=== PATIENT | female | born 1950 | race Caucasian/White ===

== ENCOUNTER 2022-02-03 06:39 | Outpatient (REF) | payer OTHER, SELFPAY ==
[2022-02-03 06:45] LABS: MANUAL DIFF FLAG NO
[2022-02-03 06:58] LABS: Basophils Percent Auto 0.4 % (0-2); Eosinophils Percent Auto 0.2 % (0-4); Hematocrit 25.8 % (37.0-47.0); Hemoglobin 7.8 g/dl (12.0-16.0); Imm Gran Abs Auto 0.05 X10*3/uL (0.00-0.03); Imm Gran Pct Auto 0.5 % (0.0-0.4); Lymphocytes Absolute Auto 1.4 X10*3/uL (1.2-4.9); Lymphocytes Percent Auto 14.1 % (20-40); Mean Corpuscular HGB Conc 30.2 g/dl (31.0-35.0); Mean Corpuscular Hemoglobin 25.4 pg (27.0-33.0); Mean Platelet Volume 11.4 fL (9.4-12.3); Monocytes Absolute Auto 0.5 X10*3/uL (0.1-1.2); Monocytes Percent Auto 5.6 % (2-11); Neutrophils Absolute Auto 7.7 x10*3/uL (2.0-8.3); Neutrophils Percent Auto 79.2 % (45-73); Platelet Count 157 X10*3/uL (160-400); Red Blood Count 3.07 X10*6/uL (4.20-5.50); Red Cell Distribution Width 13.9 % (11.0-16.0); White Blood Count 9.7 X10*3/uL (4.8-10.8)
[2022-02-03 07:18] LABS: Alanine Aminotransferase 15 U/L (0-31); Albumin Level 3.2 g/dL (3.5-5.0); Alkaline Phosphatase 77 U/L (39-117); Anion Gap 14 (12-20); Aspartate Amino Transferase 13 U/L (5-31); Bilirubin Total 0.4 mg/dL (0.0-1.0); Blood Urea Nitrogen 35 mg/dL (9-16); Calcium 9.4 mg/dL (8.4-10.2); Carbon Dioxide 24 mmol/L (22-29); Chloride 101 mmol/L (96-108); Estimated Glomerular Filt Rate 39; Glucose Random 345 mg/dL (60-115); Potassium 4.6 mmol/L (3.3-5.1); Sodium 134 mmol/L (135-145); Total Protein 5.8 g/dL (6.5-8.0)
== END 2022-02-03 06:40 | disposition home or self-care (01) ==
LOC: HO.MMNH1L 06:39
PROVIDERS: Visit Provider Family Medicine
DX: E11.9 Type 2 diabetes mellitus without complications (principal)
CPT/HCPCS: 36415; 80053; 85025

== ENCOUNTER 2022-02-08 00:42 | Outpatient (REF) | payer OTHER, SELFPAY ==
[2022-02-08 06:42] LABS: MANUAL DIFF FLAG NO
[2022-02-08 07:06] LABS: Basophils Percent Auto 0.3 % (0-2); Eosinophils Absolute Auto 0.1 X10*3/uL (0.0-0.4); Eosinophils Percent Auto 1.6 % (0-4); Hematocrit 26.2 % (37.0-47.0); Hemoglobin 7.7 g/dl (12.0-16.0); Imm Gran Abs Auto 0.02 X10*3/uL (0.00-0.03); Imm Gran Pct Auto 0.3 % (0.0-0.4); Lymphocytes Percent Auto 16.3 % (20-40); Mean Corpuscular HGB Conc 29.4 g/dl (31.0-35.0); Mean Corpuscular Hemoglobin 25.2 pg (27.0-33.0); Mean Corpuscular Volume 85.6 fL (80.0-98.0); Mean Platelet Volume 12.1 fL (9.4-12.3); Monocytes Absolute Auto 0.5 X10*3/uL (0.1-1.2); Monocytes Percent Auto 7.4 % (2-11); Neutrophils Absolute Auto 4.6 x10*3/uL (2.0-8.3); Neutrophils Percent Auto 74.1 % (45-73); Platelet Count 147 X10*3/uL (160-400); Red Blood Count 3.06 X10*6/uL (4.20-5.50); Red Cell Distribution Width 13.8 % (11.0-16.0); White Blood Count 6.2 X10*3/uL (4.8-10.8)
[2022-02-08 07:30] LABS: Anion Gap 12 (12-20); Blood Urea Nitrogen 32 mg/dL (9-16); Carbon Dioxide 30 mmol/L (22-29); Chloride 104 mmol/L (96-108); Estimated Glomerular Filt Rate 54; Glucose Random 211 mg/dL (60-115); Potassium 4.9 mmol/L (3.3-5.1); Sodium 141 mmol/L (135-145)
== END 2022-02-08 00:43 | disposition home or self-care (01) ==
LOC: HO.MMNH1L 00:42
PROVIDERS: Visit Provider Family Medicine
DX: E11.9 Type 2 diabetes mellitus without complications (principal)
CPT/HCPCS: 36415; 80048; 85025

== ENCOUNTER 2022-02-15 | Outpatient (REF) | payer OTHER, SELFPAY ==
[2022-02-15 07:22] LABS: Anion Gap 12 (12-20); Blood Urea Nitrogen 33 mg/dL (9-16); Calcium 8.5 mg/dL (8.4-10.2); Carbon Dioxide 34 mmol/L (22-29); Chloride 100 mmol/L (96-108); Estimated Glomerular Filt Rate 40; Glucose Random 257 mg/dL (60-115); Potassium 4.2 mmol/L (3.3-5.1); Sodium 142 mmol/L (135-145)
[2022-02-15 07:57] LABS: Hematocrit 26.2 % (37.0-47.0); Hemoglobin 7.7 g/dl (12.0-16.0); Mean Corpuscular HGB Conc 29.4 g/dl (31.0-35.0); Mean Corpuscular Hemoglobin 25.2 pg (27.0-33.0); Mean Corpuscular Volume 85.6 fL (80.0-98.0); Mean Platelet Volume 12.8 fL (9.4-12.3); Platelet Count 114 X10*3/uL (160-400); Red Blood Count 3.06 X10*6/uL (4.20-5.50); Red Cell Distribution Width 14.6 % (11.0-16.0); White Blood Count 6.4 X10*3/uL (4.8-10.8)
== END 2022-02-15 00:01 ==
LOC: HO.MMNH1L
PROVIDERS: Visit Provider Family Medicine
DX: E11.9 Type 2 diabetes mellitus without complications (principal)
CPT/HCPCS: 36415; 80048; 85027

== ENCOUNTER 2022-02-17 | Outpatient (REF) | payer OTHER, SELFPAY ==
[2022-02-17 05:57] LABS: Anion Gap 14 (12-20); Blood Urea Nitrogen 37 mg/dL (9-16); Carbon Dioxide 34 mmol/L (22-29); Chloride 97 mmol/L (96-108); Estimated Glomerular Filt Rate 41; Glucose Random 162 mg/dL (60-115); Potassium 4.1 mmol/L (3.3-5.1); Sodium 141 mmol/L (135-145)
== END 2022-02-17 00:01 | disposition home or self-care (01) ==
LOC: HO.MMNH1L
PROVIDERS: Visit Provider Family Medicine
DX: I50.40 Unspecified combined systolic (congestive) and diastolic (congestive) heart failure (principal); J44.9 Chronic obstructive pulmonary disease, unspecified
CPT/HCPCS: 36415; 80048

== ENCOUNTER 2022-02-22 | Outpatient (REF) | payer MEDICARE, SELFPAY ==
[2022-02-22 06:59] LABS: Hematocrit 28.1 % (37.0-47.0); Hemoglobin 8.3 g/dl (12.0-16.0); Mean Corpuscular HGB Conc 29.5 g/dl (31.0-35.0); Mean Corpuscular Hemoglobin 24.5 pg (27.0-33.0); Mean Corpuscular Volume 82.9 fL (80.0-98.0); Mean Platelet Volume 13.3 fL (9.4-12.3); Platelet Count 118 X10*3/uL (160-400); Red Blood Count 3.39 X10*6/uL (4.20-5.50); Red Cell Distribution Width 14.6 % (11.0-16.0)
[2022-02-22 07:27] LABS: Anion Gap 14 (12-20); Blood Urea Nitrogen 52 mg/dL (9-16); Calcium 8.5 mg/dL (8.4-10.2); Carbon Dioxide 36 mmol/L (22-29); Chloride 98 mmol/L (96-108); Estimated Glomerular Filt Rate 32; Glucose Random 151 mg/dL (60-115); Potassium 3.8 mmol/L (3.3-5.1); Sodium 144 mmol/L (135-145)
== END 2022-02-22 00:01 | disposition home or self-care (01) ==
LOC: HO.MMNH1L
PROVIDERS: Visit Provider Family Medicine
DX: E11.9 Type 2 diabetes mellitus without complications (principal)
CPT/HCPCS: 36415; 80048; 85027

== ENCOUNTER 2022-02-22 | Outpatient (REF) | payer MEDICARE, SELFPAY ==
[2022-02-25 05:52] LABS: Anion Gap 14 (12-20); Blood Urea Nitrogen 40 mg/dL (9-16); Calcium 9.1 mg/dL (8.4-10.2); Carbon Dioxide 35 mmol/L (22-29); Chloride 97 mmol/L (96-108); Estimated Glomerular Filt Rate 35; Glucose Random 286 mg/dL (60-115); Potassium 4.3 mmol/L (3.3-5.1); Sodium 142 mmol/L (135-145)
== END 2022-02-22 00:01 | disposition home or self-care (01) ==
LOC: HO.MMNH1L
PROVIDERS: Visit Provider Family Medicine
DX: I50.40 Unspecified combined systolic (congestive) and diastolic (congestive) heart failure (principal); J44.9 Chronic obstructive pulmonary disease, unspecified
CPT/HCPCS: 36415; 80048

== ENCOUNTER 2022-02-24 17:48 | Outpatient (REF) | payer OTHER, SELFPAY ==
[2022-02-24 18:18] LABS: Appearance Urine HAZY; Color Urine YELLOW; Glucose Urine UA NEG (NEG); Leukocyte Esterase Urine 3+ (NEG); Nitrite Urine POS (NEG); Specific Gravity - Urine 1.015 (1.005-1.025); Urine Blood TRACE (NEG); Urine Ketones NEG (NEG); Urine Protein NEG (NEG-TRACE)
[2022-02-24 18:36] LABS: Bacteria Urine 3+ /LPF; Squamous Epithelial Cell Urine 2+ /LPF
== END 2022-02-24 17:49 | disposition home or self-care (01) ==
LOC: HO.MMNH1L 17:48
PROVIDERS: Visit Provider Family Medicine
DX: J44.9 Chronic obstructive pulmonary disease, unspecified (principal); M62.511 Muscle wasting and atrophy, not elsewhere classified, right shoulder
CPT/HCPCS: 81001; 87086

== ENCOUNTER → 2022-08-06 14:29 | Outpatient (BNVA) | payer MEDICARE, MEDICAID, SELFPAY | PROVIDERS: PCP Internal Medicine; Visit Provider Student in an Organized Health Care Education/Training Program | DX: M06.9 Rheumatoid arthritis, unspecified (principal); D86.9 Sarcoidosis, unspecified; M17.0 Bilateral primary osteoarthritis of knee; G51.0 Bell's palsy | CPT/HCPCS: 99202 ==

== ENCOUNTER → 2022-12-16 11:16 | Outpatient (BNVA) | payer OTHER, SELFPAY | PROVIDERS: PCP Internal Medicine; Visit Provider Student in an Organized Health Care Education/Training Program | DX: M06.09 Rheumatoid arthritis without rheumatoid factor, multiple sites (principal); M87.151 Osteonecrosis due to drugs, right femur; T38.0X5A Adverse effect of glucocorticoids and synthetic analogues, initial encounter; S63.8X1A Sprain of other part of right wrist and hand, initial encounter | CPT/HCPCS: 99212 ==

== ENCOUNTER → 2023-03-11 10:22 | Outpatient (BNVA) | payer MEDICARE, MEDICAID, SELFPAY | PROVIDERS: PCP Internal Medicine; Visit Provider Student in an Organized Health Care Education/Training Program | DX: M06.09 Rheumatoid arthritis without rheumatoid factor, multiple sites (principal); M87.151 Osteonecrosis due to drugs, right femur; T38.0X5D Adverse effect of glucocorticoids and synthetic analogues, subsequent encounter; S63.8X1D Sprain of other part of right wrist and hand, subsequent encounter | CPT/HCPCS: 99212 ==

== ENCOUNTER 2023-06-10 13:36 | Outpatient (AMB) | payer MEDICARE, MEDICAID, SELFPAY ==
--- NOTE | 2023-06-10 13:38 | MHC.OFFVIS ---
Intake Vital Signs 06/10/23 13:39 Height 5 ft 3.5 in BMI Reason not done Patient refused/unable Comment Pt arrived in stretcher Intake Visit Reasons: RA Intake Note: Pt seen today for RA follow up. She is currently on nitrofurantoin 100mg daily. Arrived by ambulance with her son who states she is very sick and nauseous due to gastroparesis. Unable to take vital signs as pt is vomiting. 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 Required: No Accompanied by: Son Allergies adhesive Adverse Reaction (Intermediate, Verified 06/10/23 13:39) Rash, Swelling cefadroxil Adverse Reaction (Unknown, Verified 06/10/23 13:39) Unknown NSAIDS (Non-Steroidal Anti-Inflamma Adverse Reaction (Unknown, Verified 06/10/23 13:39) Unknown pantoprazole Adverse Reaction (Unknown, Verified 06/10/23 13:39) Unknown From Duricef Allergy (Intermediate, Uncoded 06/10/23 13:39) RASH Medication List - Last Reconciled 06/10/23 by Jakub Greenwood MD albuterol sulfate 90 mcg/actuation 0 mcg inhalation apixaban (Eliquis) 5 mg PO BID bisacodyl 10 mg [place] DAILY PRN blood sugar diagnostic (FreeStyle Lite Strips) As directed budesonide-formoterol 160-4.5 mcg/actuation (Symbicort) 2 puffs inhalation bumetanide 1 mg PO DAILY buspirone 5 mg PO BID calcitriol mcg PO cholecalciferol (vitamin D3) 1,250 mcg PO QWEEK cholecalciferol (vitamin D3) 25 mcg PO DAILY famotidine 20 mg PO BID ferrous sulfate 325 mg PO DAILY folic acid 1 mg PO DAILY insulin regular hum U-500 conc (Humulin R U-500 (Concentrated) Insulin) units subcut isosorbide mononitrate ER 60 mg PO DAILY lactulose mL PO lancets (TRUEplus Lancets) As directed levothyroxine 112 mcg PO DAILY metoprolol succinate ER 50 mg PO DAILY morphine ER 30 mg PO BID PRN nitrofurantoin macrocrystal 100 mg PO BEDTIME ondansetron 4 mg PO DAILY oxycodone 10 mg PO QID PRN peg 400-propylene glycol 0.4-0.3 % (Lubricant Eye (PG-PEG 400)) 2 drps ophthalmic (eye) Q4H PRN potassium chloride ER 20 mEq PO DAILY pregabalin (Lyrica) 75 mg PO BID ropinirole 2 mg PO BEDTIME sennosides (senna) 8.6 - 17.2 mg PO BEDTIME PRN spironolactone 25 mg PO DAILY sulfasalazine 1 g (2 x 500 mg) PO BID HPI HPI Comments History of Present Illness Details 72-year-old female with PMR/seronegative RA/sarcoidosis returns for follow-up. She is accompanied by her son. Patient has been having symptoms of nausea and vomiting for the last year. She was diagnosed with gastroparesis about 4 weeks ago by Gastroenterology and Zofran was prescribed. Today patient was nauseous in clinic and vomited a small amount of yellowish material. Vital signs could not be completed. Patient continues to have significant pain in her shoulders and hips. States that when they are trying to insert a Morales catheter she has significant difficulty moving her hips. Compliant with sulfasalazine 2 tablets twice daily. Follow-up 01/06: 71-year-old female with a past medical history of sarcoidosis, seronegative RA, PMR, COPD presents for follow-up. Patient is now discharged home and her son is taking care of her. Patient continues to have diffuse pain especially in her shoulders worse on the left, wrists, fingers, knees and hips. She states that the joint pain lasts almost all day. She mentions that a few days ago she had abrupt onset of right wrist swelling. She went to urgent care and did an x-ray which showed evidence of a scapular Andrea ligamentous injury. Patient treated it with Voltaren gel with some improvement. Initial history: This is a 71-year-old female who was transferred from long-term [facility]. She has a relatively complex rheumatologic history. Unfortunately I do not have any records of her previous rheumatological evaluation. All history obtained is from patient. She was diagnosed with uveitis in her 20s which was treated with prednisone. 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 She also has a diagnosis of rheumatoid arthritis diagnosed about 5 years ago which was treated with methotrexate and Humira. The Humira was discontinued due to infectious complications. she was also diagnosed with PMR about 2 years ago and was on prednisone for about a year. also there was suspicion of a myopathic disorder and she had a right thigh biopsy. she developed left Terrazas's palsy about 2 months ago and this was not treated, she has some improvement of hers left facial weakness but did not get evaluated by neurology. She used to see Dr. Marroquin, she was last seen by him about a year ago and previously saw Dr. Davis . Presently she has diffuse pain including her shoulders, elbows, hands, ankles and feet. she denies any significant joint swelling. Presently she is on prednisone 1 mg daily. She has been having anemia and she is scheduled for a colonoscopy soon. She also mentions that 1 of her sons has sarcoidosis. She states that she will likely be discharged from long-term care to her son's house in about a month. [facility] Medical History (Updated 06/10/23 @ 14:32 by Jakub Greenwood MD) Anxiety Cardiac pacemaker Crohn's disease Dupuytren contracture Dyslipidemia Dysphagia Encounter for vitamin deficiency screening Hypertension Hypothyroidism Major depressive disorder Morbid obesity Obstructive sleep apnea PMR (polymyalgia rheumatica) Rheumatoid arthritis Sarcoidosis Type 2 diabetes mellitus Surgical History H/O hand surgery History of partial colectomy History of thyroid surgery Hx of section Family History Other Rheumatoid arthritis Social History Alcohol intake: current Alcohol intake frequency: does not drink Patient Tobacco Use Status: Former Tobacco user Quit Date: 40 years ago Review of Systems GI Reports dyspepsia, Reports nausea and Reports vomiting Musc Reports arthralgias and Reports stiffness Physical Exam Const General: cooperative and comfortable Nutritional Appearance: obese morbidly obese Orientation/consciousness: patient oriented x3 Limitations: other limitations ( Patient is here on a stretcher) Resp Effort & Inspection: normal respiratory effort and able to speak in complete sentences Neuro General: patient oriented x3 Extrem Other: significantly limited range of motion of her shoulders. Some tenderness to palpation. No erythema or warmth Wrists are not tender but painful with flexion and extension Significantly limited wrist extension bilaterally Left hand 2nd through 5th MCP tenderness in the palmar aspect Osteoarthritic changes of both hands. Normal nail fold capillaroscopy Right knee warmth Results Reviewed Results Reviewed: Right thigh muscle biopsy 10/2021? Impression:? Abnormal skeletal muscle with moderate to marked type 2 fiber atrophy Type 2 fiber atrophy is a relatively nonspecific changes, most often associated with this use of muscle or corticosteroid therapy.? The muscle shows no histologic features consistent with a primary myopathy or neurogenic process.? No inflammation is present.? The negative immune no reactivity for [facility] would not favor an inflammatory myopathy Right hand x-ray 12/10/2022 Impression severe arthritic changes. Evidence of scapholunate ligamentous injury. Assessment & Plan Assessment & Plan (1) Rheumatoid arthritis: Code(s): M06.9 - Rheumatoid arthritis, unspecified Qualifiers: Rheumatoid arthritis location: multiple sites Rheumatoid factor presence: without rheumatoid factor Qualified Code(s): M06.09 - Rheumatoid arthritis without rheumatoid factor, multiple sites Plan: ?This is a 72-year-old female with complex past medical history. She has a pretty significant past rheumatologic history.? Unfortunately I only have partial records records of her prior rheumatologic evaluation.? She developed uveitis in her 20s which was treated with prednisone, she was diagnosed with pulmonary sarcoidosis after a lung biopsy , she did not seem to have any? manifestations of pulmonary sarcoidosis that required treatment.? But she did develop cardiac sarcoidosis and required pacemaker around 2010.? She also developed polymyalgia rheumatica around 2019 ago & was on long-term steroids.? She also was diagnosed with rheumatoid arthritis and was treated with methotrexate and Humira.? The Humira was discontinued due to infectious complications.?? Unfortunately she also developed left-sided Terrazas's palsy in fall of 2021 which was treated with prednisone. earlier this year patient was started on methotrexate, she was then admitted to the hospital with a UTI and labs showed thrombocytopenia. Methotrexate was discontinued at that time. Sulfasalazine was started a few months ago with some relief. Within the last 2 months patient also developed another UTI. Patient however continues to have generalized pain and stiffness. The majority of her symptoms are in her shoulders and hips. Of note patient has bilateral femoral AVN's. Unfortunately we are quite limited in our choice for DMARD, most biologics would be relatively contraindicated due to risk of infection. Methotrexate would also be relatively contraindicated due to risk of pneumonitis on top of her history of COPD/asthma with multiple exacerbations. Discussed risks and benefits of long-term prednisone therapy. Patient agreed to proceed. Start prednisone 5 mg daily. Advised patient and her send that if her blood sugars become uncontrolled then will stop the prednisone and consider other options. (2) Avascular necrosis of right femur due to adverse effect of steroid therapy: Code(s): M87.151 - Osteonecrosis due to drugs, right femur; T38.0X5A - Adverse effect of glucocorticoids and synthetic analogues, initial encounter Plan: Bilateral hip x-ray is suspicious for bilateral femoral AVN. We cannot order an MRI to confirm AVN as her pacemaker is not MRI compatible. Patient however would not be a surgical candidate at this point for hip replacement. She is also not interested in getting evaluated by an orthopedic surgeon (3) Screening for osteoporosis: Code(s): Z13.820 - Encounter for screening for osteoporosis Plan: Patient's most recent bone density scan was many years ago. He was told she had osteopenia. Will check a new bone density scan Plan I spent 26 minutes reviewing patient's chart, evaluating patient, ordering diagnostic workup, counseling patient and documenting in the chart Orders: Orders Vitamin D 25-OH Total 3 Months Z13.21 - Encounter for screening for nutritional disorder Medications: New prednisone 5 mg PO DAILY 30 tabs 2RF Coding Level of Care Code Est Pt Level 4 (80427) Diagnoses Rheumatoid arthritis M06.09 Rheumatoid arthritis location: multiple sites Rheumatoid factor presence: without rheumatoid factor Avascular necrosis of right femur due to adverse effect of steroid therapy M87.151; T38.0X5A Screening for osteoporosis Z13.820
== END 2023-06-10 14:22 | disposition home or self-care (01) ==
PROVIDERS: PCP Internal Medicine; Visit Provider Student in an Organized Health Care Education/Training Program
DX: M06.09 Rheumatoid arthritis without rheumatoid factor, multiple sites (principal); M87.151 Osteonecrosis due to drugs, right femur; T38.0X5A Adverse effect of glucocorticoids and synthetic analogues, initial encounter; Z13.820 Encounter for screening for osteoporosis
CPT/HCPCS: 99214

== ENCOUNTER → 2023-06-10 13:36 | Outpatient (BNVA) | payer MEDICARE, MEDICAID, SELFPAY | PROVIDERS: PCP Internal Medicine; Visit Provider Student in an Organized Health Care Education/Training Program | DX: M06.09 Rheumatoid arthritis without rheumatoid factor, multiple sites (principal); M72.0 Palmar fascial fibromatosis [Dupuytren]; M35.3 Polymyalgia rheumatica; M87.151 Osteonecrosis due to drugs, right femur; T38.0X5A Adverse effect of glucocorticoids and synthetic analogues, initial encounter; Y92.9 Unspecified place or not applicable; Z13.21 Encounter for screening for nutritional disorder; Z13.820 Encounter for screening for osteoporosis | CPT/HCPCS: 99212 ==

== ENCOUNTER 2023-08-31 13:56 | Outpatient (AMB) | payer OTHER, SELFPAY ==
--- NOTE | 2023-08-31 13:59 | MHC.OFFVIS ---
Intake Vital Signs 08/31/23 14:00 Height 5 ft 3.5 in BMI Reason not done Patient refused/unable BP 102/80 Blood Pressure Location Lt radial Position Supine Pulse 70 Pulse Source Pulse Oximeter Temp 98 F Temp Source Skin Pulse Oximetry (%) 92 Oxygen Delivery Method Room Air Intake Visit Reasons: RA Intake Note: Patient presents today to follow up on RA. c/o left sided back excessive sweating. c/o wheezing x 1 wk, nebulizer tx helping Transportation Associate Required: No Accompanied by: Son Allergies adhesive Adverse Reaction (Intermediate, Verified 08/31/23 14:00) Rash, Swelling cefadroxil Adverse Reaction (Unknown, Verified 08/31/23 14:00) Unknown NSAIDS (Non-Steroidal Anti-Inflamma Adverse Reaction (Unknown, Verified 08/31/23 14:00) Unknown pantoprazole Adverse Reaction (Unknown, Verified 08/31/23 14:00) Unknown From Duricef Allergy (Intermediate, Uncoded 08/31/23 14:00) RASH Medication List - Last Reconciled 08/31/23 by Jakub Greenwood MD albuterol sulfate 90 mcg/actuation 0 mcg inhalation apixaban (Eliquis) 5 mg PO BID Bacillus coagulans-inulin 1 billion-250 cell-mg (Probiotic Formula (inulin)) 1 cap PO BID bisacodyl 10 mg LA DAILY PRN blood sugar diagnostic (FreeStyle Lite Strips) As directed budesonide-formoterol 160-4.5 mcg/actuation (Symbicort) 2 puffs inhalation bumetanide 1 mg PO DAILY buspirone 5 mg PO BID calcitriol mcg PO cholecalciferol (vitamin D3) 25 mcg PO DAILY ciprofloxacin HCl 500 mg PO BID famotidine 20 mg PO BID ferrous sulfate 325 mg PO DAILY folic acid 1 mg PO DAILY insulin regular hum U-500 conc (Humulin R U-500 (Concentrated) Insulin) units subcut isosorbide mononitrate ER 60 mg PO DAILY lactulose mL PO lancets (TRUEplus Lancets) As directed levothyroxine 112 mcg PO DAILY metoprolol succinate ER 50 mg PO DAILY morphine ER 30 mg PO BID PRN ondansetron 4 mg PO DAILY oxycodone 10 mg PO QID PRN potassium chloride ER 20 mEq PO DAILY prednisone 5 mg PO DAILY pregabalin (Lyrica) 75 mg PO BID ropinirole 2 mg PO BEDTIME sennosides (senna) 8.6 - 17.2 mg PO BEDTIME PRN spironolactone 25 mg PO DAILY sulfasalazine 1,000 mg (2 x 500 mg) PO BID tiotropium bromide 2.5 mcg/actuation (Spiriva Respimat) 2 puffs inhalation DAILY HPI HPI Comments History of Present Illness Details 72-year-old female with PMR/seronegative RA/sarcoidosis returns for follow-up. She is accompanied by her son. She is on sulfasalazine 1000 mg Twice daily and prednisone 5 mg daily. Her joint pain and swelling is better overall. She continues to have difficulty with moving her shoulders. She was diagnosed with a UTI it recently when she was having fevers and confusion, alteration of sleep cycle. She was started on ciprofloxacin with improvement. Recently patient has been more short of breath. She has been using nebulizer treatment with little relief. She is having more desaturations at home. She had a cough productive of sputum mixed with blood recently. Per son she has been having leakage of fluid from her skin on her side. Follow-up 01/06: 71-year-old female with a past medical history of sarcoidosis, seronegative RA, PMR, COPD presents for follow-up. Patient is now discharged home and her son is taking care of her. Patient continues to have diffuse pain especially in her shoulders worse on the left, wrists, fingers, knees and hips. She states that the joint pain lasts almost all day. She mentions that a few days ago she had abrupt onset of right wrist swelling. She went to urgent care and did an x-ray which showed evidence of a scapular Andrea ligamentous injury. Patient treated it with Voltaren gel with some improvement. Initial history: This is a 71-year-old female who was transferred from long-term [facility]. She has a relatively complex rheumatologic history. Unfortunately I do not have any records of her previous rheumatological evaluation. All history obtained is from patient. She was diagnosed with uveitis in her 20s which was treated with prednisone. 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 She also has a diagnosis of rheumatoid arthritis diagnosed about 5 years ago which was treated with methotrexate and Humira. The Humira was discontinued due to infectious complications. she was also diagnosed with PMR about 2 years ago and was on prednisone for about a year. also there was suspicion of a myopathic disorder and she had a right thigh biopsy. she developed left Terrazas's palsy about 2 months ago and this was not treated, she has some improvement of hers left facial weakness but did not get evaluated by neurology. She used to see Dr. Marroquin, she was last seen by him about a year ago and previously saw Dr. Davis . Presently she has diffuse pain including her shoulders, elbows, hands, ankles and feet. she denies any significant joint swelling. Presently she is on prednisone 1 mg daily. She has been having anemia and she is scheduled for a colonoscopy soon. She also mentions that 1 of her sons has sarcoidosis. She states that she will likely be discharged from long-term care to her son's house in about a month. [facility] Medical History Encounter for vitamin deficiency screening Sarcoidosis Cardiac pacemaker PMR (polymyalgia rheumatica) Hypertension Obstructive sleep apnea Anxiety Dyslipidemia Hypothyroidism Dupuytren contracture Crohn's disease Morbid obesity Type 2 diabetes mellitus Rheumatoid arthritis Dysphagia Major depressive disorder Surgical History History of thyroid surgery H/O hand surgery Hx of section History of partial colectomy Family History Other Rheumatoid arthritis Social History Alcohol intake: current Alcohol intake frequency: does not drink Patient Tobacco Use Status: Former Tobacco user Quit Date: 40 years ago Review of Systems Card Reports dyspnea Resp Reports dyspnea and Reports wheezing Musc Reports arthralgias Aller/Immun Reports wheezing Physical Exam Vital Signs: Last Vital Signs Temp 98 F 08/31/23 14:00 Pulse 70 08/31/23 14:00 BP 102/80 08/31/23 14:00 Pulse Ox 92 08/31/23 14:00 Oxygen Delivery Method Room Air 08/31/23 14:00 Const General: cooperative and comfortable Nutritional Appearance: obese morbidly obese Orientation/consciousness: patient oriented x3 Limitations: other limitations ( Patient is here on a stretcher) Resp Other: Some respiratory distress Effort & Inspection: able to speak in complete sentences Auscultation: wheezes Skin Other: Patient has multiple skin mole eyes that are stretched with clear fluid, some of the stretch menjivar ruptured with some clear fluid leakage Neuro General: patient oriented x3 Extrem Other: significantly limited range of motion of her shoulders. Some tenderness to palpation. No erythema or warmth Wrists are not tender but painful with flexion and extension Significantly limited wrist extension bilaterally No MCP tenderness or swelling bilaterally today Osteoarthritic changes of both hands. Normal nail fold capillaroscopy No knee pain, warmth, swelling bilaterally Pitting edema of lower extremities Results Reviewed Results Reviewed: Right thigh muscle biopsy 10/2021? Impression:? Abnormal skeletal muscle with moderate to marked type 2 fiber atrophy Type 2 fiber atrophy is a relatively nonspecific changes, most often associated with this use of muscle or corticosteroid therapy.? The muscle shows no histologic features consistent with a primary myopathy or neurogenic process.? No inflammation is present.? The negative immune no reactivity for [facility] would not favor an inflammatory myopathy Right hand x-ray 12/10/2022 Impression severe arthritic changes. Evidence of scapholunate ligamentous injury. Assessment & Plan Assessment & Plan (1) Rheumatoid arthritis: Code(s): M06.9 - Rheumatoid arthritis, unspecified Qualifiers: Rheumatoid arthritis location: multiple sites Rheumatoid factor presence: without rheumatoid factor Qualified Code(s): M06.09 - Rheumatoid arthritis without rheumatoid factor, multiple sites Plan: ?This is a 72-year-old female with complex past medical history. She has a pretty significant past rheumatologic history.? Unfortunately I only have partial records records of her prior rheumatologic evaluation.? She developed uveitis in her 20s which was treated with prednisone, she was diagnosed with pulmonary sarcoidosis after a lung biopsy , she did not seem to have any? manifestations of pulmonary sarcoidosis that required treatment.? But she did develop cardiac sarcoidosis and required pacemaker around 2010.? She also developed polymyalgia rheumatica around 2019 ago & was on long-term steroids.? She also was diagnosed with rheumatoid arthritis and was treated with methotrexate and Humira.? The Humira was discontinued due to infectious complications.?? Unfortunately she also developed left-sided Terrazas's palsy in fall of 2021 which was treated with prednisone. earlier this year patient was started on methotrexate, she was then admitted to the hospital with a UTI and labs showed thrombocytopenia. Methotrexate was discontinued at that time. Sulfasalazine was started a few months ago with some relief. Within the last 2 months patient also developed another UTI. Patient however continues to have generalized pain and stiffness. The majority of her symptoms are in her shoulders and hips. Of note patient has bilateral femoral AVN's. Unfortunately we are quite limited in our choice for DMARD, most biologics would be relatively contraindicated due to risk of infection. Methotrexate would also be relatively contraindicated due to risk of pneumonitis on top of her history of COPD/asthma with multiple exacerbations. Last visit prednisone 5 mg daily was added to her sulfasalazine 1000 mg Twice daily with significant improvement. I do not see any swollen joints today. Patient however has developed CHF, it is unclear what the culprit is, can be recent UTI versus prednisone which can lead to fluid overload. Reduce prednisone to 2.5 mg daily Continue sulfasalazine 1000 mg Twice daily Labs before next visit in 3 months (2) Avascular necrosis of right femur due to adverse effect of steroid therapy: Code(s): M87.151 - Osteonecrosis due to drugs, right femur; T38.0X5A - Adverse effect of glucocorticoids and synthetic analogues, initial encounter Plan: Bilateral hip x-ray is suspicious for bilateral femoral AVN. We cannot order an MRI to confirm AVN as her pacemaker is not MRI compatible. Patient however would not be a surgical candidate at this point for hip replacement. She is also not interested in getting evaluated by an orthopedic surgeon (3) Screening for osteoporosis: Code(s): Z13.820 - Encounter for screening for osteoporosis Plan: Patient's most recent bone density scan was many years ago. She was told she had osteopenia. New bone density scan was ordered last visit, was not performed yet (4) CHF (congestive heart failure): Code(s): I50.9 - Heart failure, unspecified Qualifiers: Heart failure type: combined systolic and diastolic Heart failure chronicity: acute on chronic Qualified Code(s): I50.43 - Acute on chronic combined systolic (congestive) and diastolic (congestive) heart failure Plan: Patient is significantly fluid overloaded on exam, she even has skin edema with fluid leakage. Unclear culprit, can be recent UTI verses prednisone versus other causes. Reduce prednisone to 2.5 mg daily. Given shortness of breath on exam and significant fluid overload. Patient was taken to the emergency room at [facility] I spent 45 minutes reviewing patient's chart, evaluating patient, ordering diagnostic workup, counseling patient, speaking to EMS personnel and documenting in the chart Orders: Orders Complete Blood Count Auto Diff 3 Months M06.9 - Rheumatoid arthritis, unspecified Comprehensive Met. Panel 3 Months M06.9 - Rheumatoid arthritis, unspecified Erythrocyte Sedimentation Rate 3 Months M06.9 - Rheumatoid arthritis, unspecified C Reactive Protein 3 Months M06.9 - Rheumatoid arthritis, unspecified Coding Level of Care Code Est Pt Level 5 (91106) Diagnoses Rheumatoid arthritis of multiple sites with negative rheumatoid factor M06.09 Rheumatoid arthritis location: multiple sites Rheumatoid factor presence: without rheumatoid factor Avascular necrosis of right femur due to adverse effect of steroid therapy M87.151; T38.0X5A Screening for osteoporosis Z13.820 Acute on chronic combined systolic and diastolic congestive heart failure I50.43 Heart failure type: combined systolic and diastolic Heart failure chronicity: acute on chronic
[2023-08-31 14:00] VITALS: BP 102/80; PULSE 70; TEMP 36.6; O2SAT 92
== END 2023-08-31 14:49 | disposition home or self-care (01) ==
PROVIDERS: PCP Internal Medicine; Visit Provider Student in an Organized Health Care Education/Training Program
DX: M06.09 Rheumatoid arthritis without rheumatoid factor, multiple sites (principal); M87.151 Osteonecrosis due to drugs, right femur; T38.0X5A Adverse effect of glucocorticoids and synthetic analogues, initial encounter; Z13.820 Encounter for screening for osteoporosis; I50.43 Acute on chronic combined systolic (congestive) and diastolic (congestive) heart failure
CPT/HCPCS: 99215

== ENCOUNTER → 2023-08-31 13:56 | Outpatient (BNVA) | payer MEDICARE, MEDICAID, SELFPAY | PROVIDERS: PCP Internal Medicine; Visit Provider Student in an Organized Health Care Education/Training Program | DX: M06.09 Rheumatoid arthritis without rheumatoid factor, multiple sites (principal); M87.151 Osteonecrosis due to drugs, right femur; T38.0X5A Adverse effect of glucocorticoids and synthetic analogues, initial encounter; I50.43 Acute on chronic combined systolic (congestive) and diastolic (congestive) heart failure; Z13.820 Encounter for screening for osteoporosis | CPT/HCPCS: 99212 ==

== ENCOUNTER 2023-12-01 13:49 | Outpatient (AMB) | payer MEDICARE, MEDICAID, SELFPAY ==
[2023-12-01 13:54] VITALS: BP 118/62; PULSE 68; O2SAT 92
--- NOTE | 2023-12-01 13:54 | MHC.OFFVIS ---
Intake Vital Signs 12/01/23 13:54 Height 5 ft 3.5 in BP 118/62 Blood Pressure Location Lt brachial Position Sitting Pulse 68 Pulse Source Pulse Oximeter Pulse Oximetry (%) 92 Oxygen Delivery Method Room Air Intake Visit Reasons: RA Intake Note: Pt last seen 08/31/23 presents today for follow up and test results. c/o left shoulder pain Electrical Tech Required: No Allergies adhesive Adverse Reaction (Intermediate, Verified 12/01/23 13:58) Rash, Swelling cefadroxil Adverse Reaction (Unknown, Verified 12/01/23 13:58) Unknown NSAIDS (Non-Steroidal Anti-Inflamma Adverse Reaction (Unknown, Verified 12/01/23 13:58) Unknown pantoprazole Adverse Reaction (Unknown, Verified 12/01/23 13:58) Unknown From Duricef Allergy (Intermediate, Uncoded 12/01/23 13:58) RASH Medication List - Last Reconciled 12/01/23 by Jakub Greenwood MD albuterol sulfate 90 mcg/actuation 0 mcg inhalation apixaban (Eliquis) 5 mg PO BID Bacillus coagulans-inulin 1 billion-250 cell-mg (Probiotic Formula (inulin)) 1 cap PO BID bisacodyl 10 mg [place] DAILY PRN blood sugar diagnostic (FreeStyle Lite Strips) As directed budesonide-formoterol 160-4.5 mcg/actuation (Symbicort) 2 puffs inhalation bumetanide 1 mg PO DAILY buspirone 5 mg PO BID calcitriol mcg PO cholecalciferol (vitamin D3) 25 mcg PO DAILY famotidine 20 mg PO BID ferrous sulfate 325 mg PO DAILY folic acid 1 mg PO DAILY fosfomycin tromethamine PO insulin regular hum U-500 conc (Humulin R U-500 (Concentrated) Insulin) units subcut isosorbide mononitrate ER 60 mg PO DAILY lactulose mL PO lancets (TRUEplus Lancets) As directed levothyroxine 112 mcg PO DAILY metoprolol succinate ER 50 mg PO DAILY morphine ER 30 mg PO BID PRN ondansetron 4 mg PO DAILY oxycodone 10 mg PO QID PRN potassium chloride ER 20 mEq PO DAILY prednisone 2.5 mg PO DAILY pregabalin (Lyrica) 75 mg PO BID ropinirole 2 mg PO BEDTIME sennosides (senna) 8.6 - 17.2 mg PO BEDTIME PRN spironolactone 25 mg PO DAILY sulfamethoxazole-trimethoprim 800-160 mg 1 tab PO BID sulfasalazine 1,000 mg (2 x 500 mg) PO BID tiotropium bromide 2.5 mcg/actuation (Spiriva Respimat) 2 puffs inhalation DAILY warfarin 5 mg PO DAILY HPI HPI Comments History of Present Illness Details 72-year-old female with PMR/seronegative RA/sarcoidosis returns for follow-up. She is accompanied by her son. She is on the stretcher. She is on sulfasalazine 1000 mg Twice daily and prednisone 2.5 mg daily. After last visit I sent her to the emergency room. She was admitted to [facility]. She was found to have bilateral PE. CHF exacerbation as well as pneumonia. She was treated with diuretics, Eliquis was switched to warfarin. She also received a few days of antibiotics and discharged home. Today patient is complaining of left shoulder pain and bilateral hip pain. He states that her skin is no longer oozing fluid. She states that she is currently suffering from a UTI and having hematuria. She will be seeing a urologist soon. Follow-up 01/06: 71-year-old female with a past medical history of sarcoidosis, seronegative RA, PMR, COPD presents for follow-up. Patient is now discharged home and her son is taking care of her. Patient continues to have diffuse pain especially in her shoulders worse on the left, wrists, fingers, knees and hips. She states that the joint pain lasts almost all day. She mentions that a few days ago she had abrupt onset of right wrist swelling. She went to urgent care and did an x-ray which showed evidence of a scapular Andrea ligamentous injury. Patient treated it with Voltaren gel with some improvement. Initial history: This is a 71-year-old female who was transferred from long-term care. She has a relatively complex rheumatologic history. Unfortunately I do not have any records of her previous rheumatological evaluation. All history obtained is from patient. She was diagnosed with uveitis in her 20s which was treated with prednisone. 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 She also has a diagnosis of rheumatoid arthritis diagnosed about 5 years ago which was treated with methotrexate and Humira. The Humira was discontinued due to infectious complications. she was also diagnosed with PMR about 2 years ago and was on prednisone for about a year. also there was suspicion of a myopathic disorder and she had a right thigh biopsy. she developed left Terrazas's palsy about 2 months ago and this was not treated, she has some improvement of hers left facial weakness but did not get evaluated by neurology. She used to see Dr. Marroquin, she was last seen by him about a year ago and previously saw Dr. Davis . Presently she has diffuse pain including her shoulders, elbows, hands, ankles and feet. she denies any significant joint swelling. Presently she is on prednisone 1 mg daily. She has been having anemia and she is scheduled for a colonoscopy soon. She also mentions that 1 of her sons has sarcoidosis. She states that she will likely be discharged from long-term care to her son's house in about a month. [facility] Medical History Encounter for vitamin deficiency screening Sarcoidosis Cardiac pacemaker PMR (polymyalgia rheumatica) Hypertension Obstructive sleep apnea Anxiety Dyslipidemia Hypothyroidism Dupuytren contracture Crohn's disease Morbid obesity Type 2 diabetes mellitus Rheumatoid arthritis Dysphagia Major depressive disorder Surgical History History of thyroid surgery H/O hand surgery Hx of section History of partial colectomy Family History Other Rheumatoid arthritis Social History Alcohol intake: current Alcohol intake frequency: does not drink Patient Tobacco Use Status: Former Tobacco user Quit Date: 40 years ago Review of Systems Card Reports dyspnea Resp Reports dyspnea Musc Reports arthralgias Physical Exam Vital Signs: Last Vital Signs Pulse 68 12/01/23 13:54 BP 118/62 12/01/23 13:54 Pulse Ox 92 12/01/23 13:54 Oxygen Delivery Method Room Air 12/01/23 13:54 Const General: cooperative and comfortable Nutritional Appearance: obese morbidly obese Orientation/consciousness: patient oriented x3 Limitations: other limitations ( Patient is here on a stretcher) Resp Other: Gets a little out of breath with talking but able to finish her sentences Effort & Inspection: able to speak in complete sentences Auscultation: rhonchi and diminished lung sounds Cardio Rate: regular rate Rhythm: regular rhythm Skin Other: Few superficial bruises on elbows Neuro General: patient oriented x3 Extrem Other: significantly limited range of motion of her shoulders. Some tenderness to palpation. No erythema or warmth Wrists are not tender but painful with flexion and extension No MCP tenderness or swelling bilaterally today Osteoarthritic changes of both hands. Normal nail fold capillaroscopy No knee pain, warmth, swelling bilaterally Mild Pitting edema of lower extremities Results Reviewed Results Reviewed: Right thigh muscle biopsy 10/2021? Impression:? Abnormal skeletal muscle with moderate to marked type 2 fiber atrophy Type 2 fiber atrophy is a relatively nonspecific changes, most often associated with this use of muscle or corticosteroid therapy.? The muscle shows no histologic features consistent with a primary myopathy or neurogenic process.? No inflammation is present.? The negative immune no reactivity for [facility] would not favor an inflammatory myopathy Right hand x-ray 12/10/2022 Impression severe arthritic changes. Evidence of scapholunate ligamentous injury. Assessment & Plan Assessment & Plan (1) Rheumatoid arthritis: Code(s): M06.9 - Rheumatoid arthritis, unspecified Qualifiers: Rheumatoid arthritis location: multiple sites Rheumatoid factor presence: without rheumatoid factor Qualified Code(s): M06.09 - Rheumatoid arthritis without rheumatoid factor, multiple sites Plan: ?This is a 72-year-old female with complex past medical history. She has a pretty significant past rheumatologic history.? Unfortunately I only have partial records records of her prior rheumatologic evaluation.? She developed uveitis in her 20s which was treated with prednisone, she was diagnosed with pulmonary sarcoidosis after a lung biopsy , she did not seem to have any? manifestations of pulmonary sarcoidosis that required treatment.? But she did develop cardiac sarcoidosis and required pacemaker around 2010.? She also developed polymyalgia rheumatica around 2019 ago & was on long-term steroids.? She also was diagnosed with rheumatoid arthritis and was treated with methotrexate and Humira.?Humira was discontinued due to infectious pulmonary complications.?? Unfortunately she also developed left-sided Terrazas's palsy in fall of 2021 which was treated with prednisone. earlier this year patient was started on methotrexate, she was then admitted to the hospital with a UTI and labs showed thrombocytopenia. Methotrexate was discontinued at that time. Sulfasalazine was started a few months ago with some relief. Patient keeps getting frequent UTIs. Her current UTI is bloody. She will be going for a cystoscopy soon. Patient however continues to have generalized pain and stiffness. The majority of her symptoms are in her shoulders and hips. Of note patient has bilateral femoral AVN's. Patient was doing a little better on prednisone 5 mg daily but she developed bilateral PEs, pneumonia and admitted with CHF exacerbation.? She is currently on prednisone 2.5 mg daily and sulfasalazine 1000 mg Twice daily. Unfortunately we are quite limited in our choice for DMARD, most biologics would be relatively contraindicated due to risk of infection. Methotrexate would also be relatively contraindicated due to risk of pneumonitis on top of her history of COPD/asthma with multiple exacerbations. Discussed risks and benefits of hydroxychloroquine. (patient has history of AFib, and has a cardiac pacemaker/defibrillator) Patient agreed to proceed. Start hydroxychloroquine 200 mg Twice daily. 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 We cannot order an MRI to confirm AVN as her pacemaker is not MRI compatible. Patient however would not be a surgical candidate at this point for hip replacement. She is also not interested in getting evaluated by an orthopedic surgeon (3) Screening for osteoporosis: Code(s): Z13.820 - Encounter for screening for osteoporosis Plan: Patient's most recent bone density scan was many years ago. She was told she had osteopenia. New bone density scan was a few months ago. Patient has not been able to get it done yet (4) Long-term use of hydroxychloroquine: Code(s): Z79.899 - Other buttermaker (current) drug therapy Plan: Discussed risk of retinopathy with hydroxychloroquine. Advised patient to follow-up with her dental equipment technician for hydroxychloroquine screening Plan I spent 45 minutes reviewing patient's chart, evaluating patient, ordering diagnostic workup, counseling patient, & her son and documenting in the chart Medications: New hydroxychloroquine 200 mg PO BID 60 tabs 2RF Coding Level of Care Code Est Pt Level 5 (06149) Diagnoses Rheumatoid arthritis of multiple sites with negative rheumatoid factor M06.09 Rheumatoid arthritis location: multiple sites Rheumatoid factor presence: without rheumatoid factor Avascular necrosis of right femur due to adverse effect of steroid therapy M87.151; T38.0X5A Screening for osteoporosis Z13.820 Long-term use of hydroxychloroquine Z79.899
== END 2023-12-01 14:30 | disposition home or self-care (01) ==
PROVIDERS: PCP Internal Medicine; Visit Provider Student in an Organized Health Care Education/Training Program
DX: M06.09 Rheumatoid arthritis without rheumatoid factor, multiple sites (principal); M87.151 Osteonecrosis due to drugs, right femur; T38.0X5A Adverse effect of glucocorticoids and synthetic analogues, initial encounter; Z13.820 Encounter for screening for osteoporosis; Z79.899 Other long term (current) drug therapy
CPT/HCPCS: 99215

== ENCOUNTER → 2023-12-01 13:49 | Outpatient (BNVA) | payer MEDICARE, MEDICAID, SELFPAY | PROVIDERS: PCP Internal Medicine; Visit Provider Student in an Organized Health Care Education/Training Program | DX: M06.09 Rheumatoid arthritis without rheumatoid factor, multiple sites (principal); M87.151 Osteonecrosis due to drugs, right femur; T38.0X5D Adverse effect of glucocorticoids and synthetic analogues, subsequent encounter; Z13.820 Encounter for screening for osteoporosis; Z79.899 Other long term (current) drug therapy | CPT/HCPCS: 99212 ==

== ENCOUNTER 2024-03-01 15:20 | Outpatient (AMB) | payer MEDICARE, MEDICAID, SELFPAY ==
--- NOTE | 2024-03-01 16:12 | MHC.OFFVIS ---
Vital Signs 03/01/24 16:19 BMI Reason not done Patient refused/unable BP 112/62 Blood Pressure Location Rt brachial Position Sitting Pulse 72 Pulse Source Pulse Oximeter Pulse Oximetry (%) 98 Oxygen Delivery Method Room Air Intake Visit Reasons: RA Intake Note: Patient last seen 12/01/23 presents today for follow up. Admitted to [facility] about 2 weeks ago. Manager Fraud Required: No Accompanied by: Son Allergies adhesive Adverse Reaction (Intermediate, Verified 03/01/24 16:16) Rash, Swelling cefadroxil Adverse Reaction (Unknown, Verified 03/01/24 16:16) Unknown NSAIDS (Non-Steroidal Anti-Inflamma Adverse Reaction (Unknown, Verified 03/01/24 16:16) Unknown pantoprazole Adverse Reaction (Unknown, Verified 03/01/24 16:16) Unknown From Duricef Allergy (Intermediate, Uncoded 03/01/24 16:16) RASH Medication List - Last Reconciled 03/01/24 by Jakub Greenwood MD albuterol sulfate 90 mcg/actuation 0 mcg inhalation Bacillus coagulans-inulin 1 billion-250 cell-mg (Probiotic Formula (inulin)) 1 cap PO BID bisacodyl 10 mg [place] DAILY PRN blood sugar diagnostic (FreeStyle Lite Strips) As directed budesonide-formoterol 160-4.5 mcg/actuation (Symbicort) 2 puffs inhalation bumetanide 1 mg PO DAILY buspirone 5 mg PO BID calcitriol mcg PO cholecalciferol (vitamin D3) 25 mcg PO DAILY famotidine 20 mg PO BID ferrous sulfate 325 mg PO DAILY folic acid 1 mg PO DAILY fosfomycin tromethamine PO insulin regular hum U-500 conc (Humulin R U-500 (Concentrated) Insulin) units subcut isosorbide mononitrate ER 60 mg PO DAILY lactulose mL PO lancets (TRUEplus Lancets) As directed levothyroxine 112 mcg PO DAILY metoprolol succinate ER 50 mg PO DAILY morphine ER 30 mg PO BID PRN ondansetron 4 mg PO DAILY oxycodone 10 mg PO QID PRN potassium chloride ER 20 mEq PO DAILY prednisone 2.5 mg PO DAILY pregabalin (Lyrica) 75 mg PO BID ropinirole 2 mg PO BEDTIME sennosides (senna) 8.6 - 17.2 mg PO BEDTIME PRN spironolactone 25 mg PO DAILY sulfamethoxazole-trimethoprim 800-160 mg 1 tab PO BID sulfasalazine 1,000 mg (2 x 500 mg) PO BID tiotropium bromide 2.5 mcg/actuation (Spiriva Respimat) 2 puffs inhalation DAILY warfarin 5 mg PO DAILY HPI Comments Details: 73-year-old female with PMR/seronegative RA/sarcoidosis returns for follow-up. She is accompanied by her son. She is on the stretcher. She is on sulfasalazine 1000 mg Twice daily and prednisone 2.5 mg daily. Last visit we discussed hydroxychloroquine and I prescribed it but patient decided not to started she stated that she felt like she was on too many medicines. Admitted to [facility] 2 weeks ago due to a UTI with septicemia. She was on antibiotics and was in the ICU for a few days. Admitted for about 11 days in total. She was prescribed antibiotics. She stated that now they will change her Morales catheter every 2 weeks and prescribe her fosfomycin. She states that her joints have been doing about the same overall but her left shoulder has been more achy recently difficulty with any range of motion. Follow-up 01/06: 71-year-old female with a past medical history of sarcoidosis, seronegative RA, PMR, COPD presents for follow-up. Patient is now discharged home and her son is taking care of her. Patient continues to have diffuse pain especially in her shoulders worse on the left, wrists, fingers, knees and hips. She states that the joint pain lasts almost all day. She mentions that a few days ago she had abrupt onset of right wrist swelling. She went to urgent care and did an x-ray which showed evidence of a scapular Andrea ligamentous injury. Patient treated it with Voltaren gel with some improvement. Initial history: This is a 71-year-old female who was transferred from long-term care. She has a relatively complex rheumatologic history. Unfortunately I do not have any records of her previous rheumatological evaluation. All history obtained is from patient. She was diagnosed with uveitis in her 20s which was treated with prednisone. 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 She also has a diagnosis of rheumatoid arthritis diagnosed about 5 years ago which was treated with methotrexate and Humira. The Humira was discontinued due to infectious complications. she was also diagnosed with PMR about 2 years ago and was on prednisone for about a year. also there was suspicion of a myopathic disorder and she had a right thigh biopsy. she developed left Terrazas's palsy about 2 months ago and this was not treated, she has some improvement of hers left facial weakness but did not get evaluated by neurology. She used to see Dr. Marroquin, she was last seen by him about a year ago and previously saw Dr. Davis . Presently she has diffuse pain including her shoulders, elbows, hands, ankles and feet. she denies any significant joint swelling. Presently she is on prednisone 1 mg daily. She has been having anemia and she is scheduled for a colonoscopy soon. She also mentions that 1 of her sons has sarcoidosis. She states that she will likely be discharged from long-term care to her son's house in about a month. [facility] Medical History Encounter for vitamin deficiency screening Sarcoidosis Cardiac pacemaker PMR (polymyalgia rheumatica) Hypertension Obstructive sleep apnea Anxiety Dyslipidemia Hypothyroidism Dupuytren contracture Crohn's disease Morbid obesity Type 2 diabetes mellitus Rheumatoid arthritis Dysphagia Major depressive disorder Surgical History History of thyroid surgery H/O hand surgery Hx of section History of partial colectomy Family History Other Rheumatoid arthritis Social History Alcohol intake: current Alcohol intake frequency: does not drink Patient Tobacco Use Status: Former Tobacco user Quit Date: 40 years ago Review of Systems [facility] [place] arthralgias and Reports limited range of motion Physical Exam Vital Signs: Last Vital Signs Pulse 72 03/01/24 16:19 BP 112/62 03/01/24 16:19 Pulse Ox 98 03/01/24 16:19 Oxygen Delivery Method Room Air 03/01/24 16:19 Const General: cooperative and comfortable Nutritional Appearance: obese morbidly obese Orientation/consciousness: patient oriented x3 Limitations: other limitations ( Patient is here on a stretcher) Resp Effort & Inspection: able to speak in complete sentences Auscultation: rhonchi and diminished lung sounds Cardio Rate: regular rate Rhythm: regular rhythm Skin Other: Few superficial bruises on elbows chest, arms Neuro General: patient oriented x3 Extrem Other: significantly limited range of motion of her left shoulder no tenderness to palpation. No erythema or warmth No active synovitis both hands and wrists today No MCP tenderness or swelling bilaterally today Osteoarthritic changes of both hands. Normal nail fold capillaroscopy No knee pain, warmth, swelling bilaterally Pitting edema of lower extremities Results Reviewed Results Reviewed: Right thigh muscle biopsy 10/2021? Impression:? Abnormal skeletal muscle with moderate to marked type 2 fiber atrophy Type 2 fiber atrophy is a relatively nonspecific changes, most often associated with this use of muscle or corticosteroid therapy.? The muscle shows no histologic features consistent with a primary myopathy or neurogenic process.? No inflammation is present.? The negative immune no reactivity for [facility] would not favor an inflammatory myopathy Right hand x-ray 12/10/2022 Impression severe arthritic changes. Evidence of scapholunate ligamentous injury. Assessment & Plan Assessment & Plan (1) Rheumatoid arthritis: Code(s): M06.9 - Rheumatoid arthritis, unspecified Category: Medical Qualifiers: Rheumatoid arthritis location: multiple sites Rheumatoid factor presence: without rheumatoid factor Qualified Code(s): M06.09 - Rheumatoid arthritis without rheumatoid factor, multiple sites Plan: ?This is a 73-year-old female with complex past medical history. She has a pretty significant past rheumatologic history.? Unfortunately I only have partial records records of her prior rheumatologic evaluation.? She developed uveitis in her 20s which was treated with prednisone, she was diagnosed with pulmonary sarcoidosis after a lung biopsy , she did not seem to have any? manifestations of pulmonary sarcoidosis that required treatment.? But she did develop cardiac sarcoidosis and required pacemaker around 2010.? She also developed polymyalgia rheumatica around 2019 ago & was on long-term steroids.? She also was diagnosed with rheumatoid arthritis and was treated with methotrexate and Humira.?Humira was discontinued due to infectious pulmonary complications.?? Unfortunately she also developed left-sided Terrazas's palsy in fall of 2021 which was treated with prednisone. early 2022 patient was started on methotrexate, she was then admitted to the hospital with a UTI and labs showed thrombocytopenia. Methotrexate was discontinued at that time. Sulfasalazine was started 03/2023 ago with some relief. Patient keeps getting frequent UTIs. Was was admitted 2 weeks ago with a UTI. Of note patient has bilateral femoral AVN's. She is currently on prednisone 2.5 mg daily and sulfasalazine 1000 mg Twice daily. Unfortunately we are quite limited in our choice for DMARD, most biologics would be relatively contraindicated due to risk of infection. Methotrexate would also be relatively contraindicated due to risk of pneumonitis on top of her history of COPD/asthma with multiple exacerbations. Last visit I Discussed risks and benefits of hydroxychloroquine. (patient has history of AFib, and has a cardiac pacemaker/defibrillator) Patient agreed to proceed. Patient did not started, she felt she was on multiple medicines. Advised patient to think about it. 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 We cannot order an MRI to confirm AVN as her pacemaker is not MRI compatible. Patient however would not be a surgical candidate at this point for hip replacement. She is also not interested in getting evaluated by an orthopedic surgeon (3) Screening for osteoporosis: Code(s): Z13.820 - Encounter for screening for osteoporosis Category: Medical Plan: Patient's most recent bone density scan was many years ago. She was told she had osteopenia. New bone density scan was a few months ago. Patient has not been able to get it done yet (4) Long-term use of hydroxychloroquine: Code(s): Z79.899 - Other facilities manager (current) drug therapy Category: Medical Plan: Discussed risk of retinopathy with hydroxychloroquine. Advised patient to follow-up with her order booker for hydroxychloroquine screening Plan I spent 45 minutes reviewing patient's chart, evaluating patient, ordering diagnostic workup, counseling patient, & her son and documenting in the chart
[2024-03-01 16:19] VITALS: BP 112/62; PULSE 72; O2SAT 98
== END 2024-03-01 16:42 | disposition home or self-care (01) ==
PROVIDERS: PCP Internal Medicine; Visit Provider Student in an Organized Health Care Education/Training Program
DX: M06.09 Rheumatoid arthritis without rheumatoid factor, multiple sites (principal); M87.151 Osteonecrosis due to drugs, right femur; T38.0X5A Adverse effect of glucocorticoids and synthetic analogues, initial encounter; Z13.820 Encounter for screening for osteoporosis; Z79.899 Other long term (current) drug therapy
CPT/HCPCS: 99214

== ENCOUNTER → 2024-03-01 15:20 | Outpatient (BNVA) | payer MEDICARE, MEDICAID, SELFPAY | PROVIDERS: PCP Internal Medicine; Visit Provider Student in an Organized Health Care Education/Training Program | DX: M06.09 Rheumatoid arthritis without rheumatoid factor, multiple sites (principal); M35.3 Polymyalgia rheumatica; D86.9 Sarcoidosis, unspecified; J44.9 Chronic obstructive pulmonary disease, unspecified; M87.151 Osteonecrosis due to drugs, right femur; T38.0X5A Adverse effect of glucocorticoids and synthetic analogues, initial encounter; Z79.52 Long term (current) use of systemic steroids; Z79.01 Long term (current) use of anticoagulants; Z79.899 Other long term (current) drug therapy | CPT/HCPCS: 99212 ==

== ENCOUNTER 2024-06-26 14:23 | Outpatient (AMB) | payer MEDICARE, MEDICAID, SELFPAY ==
--- NOTE | 2024-06-26 14:27 | MHC.OFFVIS ---
Vital Signs 06/26/24 14:38 Height 5 ft 3.5 in BMI Reason not done Patient refused/unable BP 112/62 Blood Pressure Location Lt brachial Position Semi Isbell's Pulse 65 Pulse Source Pulse Oximeter Pulse Oximetry (%) 92 Oxygen Delivery Method Simple Mask Comment unable to take weight Intake Visit Reasons: RA/CM Intake Note: Patient presents for RA. Allergies adhesive Adverse Reaction (Intermediate, Verified 06/26/24 14:30) Rash, Swelling cefadroxil Adverse Reaction (Unknown, Verified 06/26/24 14:30) Unknown NSAIDS (Non-Steroidal Anti-Inflamma Adverse Reaction (Unknown, Verified 06/26/24 14:30) Unknown pantoprazole Adverse Reaction (Unknown, Verified 06/26/24 14:30) Unknown From Duricef Allergy (Intermediate, Uncoded 03/01/24 16:16) RASH Medication List - Last Reconciled 06/26/24 by Jakub Greenwood MD albuterol sulfate 90 mcg/actuation 0 mcg inhalation Bacillus coagulans-inulin 1 billion-250 cell-mg (Probiotic Formula (inulin)) 1 cap PO BID blood sugar diagnostic (FreeStyle Lite Strips) As directed bumetanide 1 mg PO BID buspirone 5 mg PO BID calcitriol mcg PO cholecalciferol (vitamin D3) 25 mcg PO DAILY folic acid 1 mg PO DAILY fosfomycin tromethamine PO insulin regular hum U-500 conc (Humulin R U-500 (Concentrated) Insulin) units subcut isosorbide mononitrate ER 60 mg PO DAILY lactulose mL PO lancets (TRUEplus Lancets) As directed levofloxacin 750 mg PO DAILY levothyroxine 112 mcg PO DAILY melatonin 5 mg PO BEDTIME PRN metoprolol succinate ER 50 mg PO DAILY morphine ER 30 mg PO BID PRN ondansetron 4 mg PO DAILY oxycodone 10 mg PO QID PRN potassium chloride ER 20 mEq PO DAILY prednisone 2.5 mg PO DAILY ropinirole 2 mg PO BEDTIME sennosides (senna) 8.6 - 17.2 mg PO BEDTIME PRN spironolactone 25 mg PO DAILY sulfasalazine 1,000 mg (2 x 500 mg) PO BID thiamine HCl (vitamin B1) 100 mg PO DAILY warfarin 7.5 mg PO DAILY HPI Comments Details: 73-year-old female with PMR/seronegative RA/sarcoidosis returns for follow-up. She is accompanied by her son. She is on the stretcher. She is on sulfasalazine 1000 mg Twice daily and prednisone 2.5 mg daily. States that she had a few hospitalizations since last admission. She was told that she has liver cirrhosis due to GARCIAS she was prescribed diuretics with improvement. Lyrica was discontinued. She also had a UTI, it was treated with antibiotics with resultant oral thrush, it was also treated. States that her arthritis is doing better today. But she continues to have significant left shoulder pain and discomfort as well as bilateral hip and left knee pain. Follow-up 01/06: 71-year-old female with a past medical history of sarcoidosis, seronegative RA, PMR, COPD presents for follow-up. Patient is now discharged home and her son is taking care of her. Patient continues to have diffuse pain especially in her shoulders worse on the left, wrists, fingers, knees and hips. She states that the joint pain lasts almost all day. She mentions that a few days ago she had abrupt onset of right wrist swelling. She went to urgent care and did an x-ray which showed evidence of a scapular Andrea ligamentous injury. Patient treated it with Voltaren gel with some improvement. Initial history: This is a 71-year-old female who was transferred from long-term care. She has a relatively complex rheumatologic history. Unfortunately I do not have any records of her previous rheumatological evaluation. All history obtained is from patient. She was diagnosed with uveitis in her 20s which was treated with prednisone. 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 She also has a diagnosis of rheumatoid arthritis diagnosed about 5 years ago which was treated with methotrexate and Humira. The Humira was discontinued due to infectious complications. she was also diagnosed with PMR about 2 years ago and was on prednisone for about a year. also there was suspicion of a myopathic disorder and she had a right thigh biopsy. she developed left Terrazas's palsy about 2 months ago and this was not treated, she has some improvement of hers left facial weakness but did not get evaluated by neurology. She used to see Dr. Marroquin, she was last seen by him about a year ago and previously saw Dr. Davis . Presently she has diffuse pain including her shoulders, elbows, hands, ankles and feet. she denies any significant joint swelling. Presently she is on prednisone 1 mg daily. She has been having anemia and she is scheduled for a colonoscopy soon. She also mentions that 1 of her sons has sarcoidosis. She states that she will likely be discharged from long-term care to her son's house in about a month. [facility] Medical History (Updated 06/26/24 @ 15:18 by Jakub Greenwood MD) Liver cirrhosis secondary to GARCIAS Sarcoidosis Cardiac pacemaker PMR (polymyalgia rheumatica) Hypertension Obstructive sleep apnea Anxiety Dyslipidemia Hypothyroidism Dupuytren contracture Crohn's disease Morbid obesity Type 2 diabetes mellitus Rheumatoid arthritis Dysphagia Major depressive disorder Surgical History History of thyroid surgery H/O hand surgery Hx of section History of partial colectomy Family History Other Rheumatoid arthritis Social History Alcohol intake: current Alcohol intake frequency: does not drink Patient Tobacco Use Status: Former Tobacco user Female Reproductive History Menstrual Total pregnancies: 2 Number of Living Children: 2 Review of Systems [facility] [place] Reports arthralgias and Reports limited range of motion Physical Exam Vital Signs: Last Vital Signs Pulse 65 06/26/24 14:38 BP 112/62 06/26/24 14:38 Pulse Ox 92 06/26/24 14:38 Oxygen Delivery Method Simple Mask 06/26/24 14:38 Const General: cooperative and comfortable Nutritional Appearance: obese morbidly obese Orientation/consciousness: patient oriented x3 Limitations: other limitations ( Patient is here on a stretcher) Resp Effort & Inspection: normal respiratory effort and able to speak in complete sentences Cardio Rate: regular rate Rhythm: regular rhythm Skin Other: Few superficial bruises on elbows, arms Neuro General: patient oriented x3 Extrem Other: significantly limited range of motion of her left shoulder no tenderness to palpation. No erythema or warmth No active synovitis both hands and wrists today No MCP tenderness or swelling bilaterally today Osteoarthritic changes of both hands. Normal nail fold capillaroscopy Left knee warmth without swelling, pain with any range of motion Pitting edema of lower extremities Results Reviewed Results Reviewed: Right thigh muscle biopsy 10/2021? Impression:? Abnormal skeletal muscle with moderate to marked type 2 fiber atrophy Type 2 fiber atrophy is a relatively nonspecific changes, most often associated with this use of muscle or corticosteroid therapy.? The muscle shows no histologic features consistent with a primary myopathy or neurogenic process.? No inflammation is present.? The negative immune no reactivity for [facility] would not favor an inflammatory myopathy Right hand x-ray 12/10/2022 Impression severe arthritic changes. Evidence of scapholunate ligamentous injury. Assessment & Plan Assessment & Plan (1) Rheumatoid arthritis: Code(s): M06.9 - Rheumatoid arthritis, unspecified Category: Medical Qualifiers: Rheumatoid arthritis location: multiple sites Rheumatoid factor presence: without rheumatoid factor Qualified Code(s): M06.09 - Rheumatoid arthritis without rheumatoid factor, multiple sites Plan: ?This is a 73-year-old female with complex past medical history. She has a pretty significant past rheumatologic history.? Unfortunately I only have partial records records of her prior rheumatologic evaluation.? She developed uveitis in her 20s which was treated with prednisone, she was diagnosed with pulmonary sarcoidosis after a lung biopsy , she did not seem to have any? manifestations of pulmonary sarcoidosis that required treatment.? But she did develop cardiac sarcoidosis and required pacemaker around 2010.? She also developed polymyalgia rheumatica around 2019 ago & was on long-term steroids.? She also was diagnosed with rheumatoid arthritis and was treated with methotrexate and Humira.?Humira was discontinued due to infectious pulmonary complications.?? Unfortunately she also developed left-sided Terrazas's palsy in fall of 2021 which was treated with prednisone. early 2022 patient was started on methotrexate, she was then admitted to the hospital with a UTI and labs showed thrombocytopenia. Methotrexate was discontinued at that time. Sulfasalazine was started 03/2023 ago with some relief. Patient keeps getting frequent UTIs. Was was admitted 2 weeks ago with a UTI. Of note patient has bilateral femoral AVN's. She is currently on prednisone 2.5 mg daily and sulfasalazine 1000 mg Twice daily. There is no active synovitis today Unfortunately we are quite limited in our choice for DMARD, most biologics would be relatively contraindicated due to risk of infection. Methotrexate would also be relatively contraindicated due to risk of pneumonitis on top of her history of COPD/asthma with multiple exacerbations. 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 We cannot order an MRI to confirm AVN as her pacemaker is not MRI compatible. Patient however would not be a surgical candidate at this point for hip replacement. She is also not interested in getting evaluated by an orthopedic surgeon (3) Generalized osteoarthritis: Code(s): M15.9 - Polyosteoarthritis, unspecified Category: Medical Plan: Most symptomatic today is her left knee and left shoulder. I will refer patient to pain management to be evaluated. I gave patient a brochure of the sprint device (4) On sulfasalazine therapy: Code(s): Z79.899 - Other terminal gauger (current) drug therapy Category: Medical Plan: Monitor safety labs Plan I spent 45 minutes reviewing patient's chart, evaluating patient, ordering diagnostic workup, counseling patient, & her son and documenting in the chart Orders: Orders Complete Blood Count Auto Diff 4 Months M06.09 - Rheumatoid arthritis without rheumatoid factor, multiple sites Comprehensive Met. Panel 4 Months M06.09 - Rheumatoid arthritis without rheumatoid factor, multiple sites C Reactive Protein 4 Months M06.09 - Rheumatoid arthritis without rheumatoid factor, multiple sites Erythrocyte Sedimentation Rate 4 Months M06.09 - Rheumatoid arthritis without rheumatoid factor, multiple sites Referrals Pain Management Referral M06.09 - Rheumatoid arthritis without rheumatoid factor, multiple sites Coding Level of Care Code Est Pt Level 5 (67090) Diagnoses Rheumatoid arthritis of multiple sites with negative rheumatoid factor M06.09 Rheumatoid arthritis location: multiple sites Rheumatoid factor presence: without rheumatoid factor Avascular necrosis of right femur due to adverse effect of steroid therapy M87.151; T38.0X5A Generalized osteoarthritis M15.9 On sulfasalazine therapy Z79.899
[2024-06-26 14:38] VITALS: BP 112/62; PULSE 65; O2SAT 92
== END 2024-06-26 14:59 | disposition home or self-care (01) ==
PROVIDERS: PCP Internal Medicine; Visit Provider Student in an Organized Health Care Education/Training Program
DX: M06.09 Rheumatoid arthritis without rheumatoid factor, multiple sites (principal); M87.151 Osteonecrosis due to drugs, right femur; T38.0X5A Adverse effect of glucocorticoids and synthetic analogues, initial encounter; M15.9 Polyosteoarthritis, unspecified; Z79.899 Other long term (current) drug therapy
CPT/HCPCS: 99215

== ENCOUNTER → 2024-06-26 14:23 | Outpatient (BNVA) | payer MEDICARE, MEDICAID, SELFPAY | PROVIDERS: PCP Internal Medicine; Visit Provider Student in an Organized Health Care Education/Training Program | DX: M06.09 Rheumatoid arthritis without rheumatoid factor, multiple sites (principal); M87.151 Osteonecrosis due to drugs, right femur; T38.0X5A Adverse effect of glucocorticoids and synthetic analogues, initial encounter; M15.9 Polyosteoarthritis, unspecified; M35.3 Polymyalgia rheumatica; D86.9 Sarcoidosis, unspecified; Z79.52 Long term (current) use of systemic steroids; Z79.899 Other long term (current) drug therapy | CPT/HCPCS: 99212 ==

== ENCOUNTER 2024-07-12 13:42 | Outpatient (AMB) | payer MEDICARE, MEDICAID, SELFPAY ==
--- NOTE | 2024-07-12 13:44 | MHC.OFFVIS ---
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: No Accompanied by: Son Allergies adhesive Adverse Reaction (Intermediate, Verified 07/12/24 13:54) Rash, Swelling cefadroxil Adverse Reaction (Unknown, Verified 07/12/24 13:54) Unknown NSAIDS (Non-Steroidal Anti-Inflamma Adverse Reaction (Unknown, Verified 07/12/24 13:54) Unknown pantoprazole Adverse Reaction (Unknown, Verified 07/12/24 13:54) Unknown From Duricef Allergy (Intermediate, Uncoded 03/01/24 16:16) RASH HPI HPI Rheumatoid arthritis without rheumatoid factor: Details: Patient is a pleasant 73-year-old female with multiple comorbidities, including polyarthralgia, diabetes, PMR, seronegative RA, sarcoidosis presents today for initial evaluation of bilateral shoulder pain. Patient arrived today via stretcher and she is accompanied by her son. She has been bedridden for 2 years and has been residing at home with VNA services in place and family support. She has aldana catheter in place. Patient also reports bilateral hip and knee pain but would like to concentrate on the shoulder pain today. She has been referred to our office by her rheumatology provider for potential neuromodulation of her pain generators. However, patient has pacemaker and defibrillator in place and is not candidate for peripheral nerve stimulation. Patient has limited and restricted movement and range of motion of both shoulders. Pain is localized to the posterior and anterior aspects of both shoulders. She completed physical therapy in 2017 and rehab 2 years ago at senior living and has received multiple injections in the past with mixed results. Pain affects her daily activities, functioning and sleep. She is interested to undergo diagnostics nerve blocks for potential radiofrequency procedure. Denies any fever, chills, malaise, shortness of breath, chest pain, infection, swelling, rash, numbness or tingling in upper extremities. Reports tingling and burning sensation in bilateral feet. Patient follows at [facility], Dr. Gonzalez for cardiac sarcoidosis in AF. Coumadin is managed by VNA services and PCP. She is currently receiving opioids, oxycodone 10 mg q.i.d. p.r.n. and morphine ER 30 mg b.i.d., prescribed by her PCP. Patient reports most recent A1C-5.2. Patient reports bilateral foot pain with burning sensations, especially at nighttime. She is interested in topical 8% capsaicin application procedure as well. Location: Bilateral shoulders, hips, knees, feet Duration: Chronic pain for >30 years Characteristics of symptom or complaint: Aching, spreading, sore, hurting, heavy, burning, tingling, throbbing Aggravating or associated factors: Cold weather, movements, overhead reaches, pulling, ROM Relieving factors: pain pills , prednisone, diclofenac gel Treatment: PT, injections, [place] [facility]hab [facility] Medical History Liver cirrhosis secondary to GARCIAS Sarcoidosis Cardiac pacemaker PMR (polymyalgia rheumatica) Hypertension Obstructive sleep apnea Anxiety Dyslipidemia Hypothyroidism Dupuytren contracture Crohn's disease Morbid obesity Type 2 diabetes mellitus Rheumatoid arthritis Dysphagia Major depressive disorder Surgical History History of thyroid surgery H/O hand surgery Hx of section History of partial colectomy Family History Other Rheumatoid arthritis Social History Alcohol intake: current Alcohol intake frequency: does not drink Patient Tobacco Use Status: Former Tobacco user Review of Systems Const All systems reviewed & are unremarkable except as noted in HPI and below Physical Exam Vital Signs: BMI result Body Mass Index 46.0 General: Appears afebrile. Alert and oriented. Mood and affect appropriate. Follows and participates in conversation appropriately. Respiratory effort is unlabored. No cough. Patient arrived via stretcher today. F/C in place. Resp Effort & Inspection: normal respiratory effort, able to speak in complete sentences, no cough and no respiratory distress Extrem General: Yes capillary refill normal, Yes no clubbing, cyanosis or edema and Yes no calf tenderness Right upper extremity: shoulder/upper arm (Limited ROM due to pain with I/E rotations.) Details: normal to inspection, tenderness Location: over the biceps tendon and over the subacromial bursa and crepitus; no swelling, no ecchymosis and no unusual warmth Left upper extremity: shoulder/upper arm (Limited ROM due to pain with I/E rotations.) Details: inspection abnormal, tenderness Location: over the biceps tendon, over the subacromial bursa and over the deltoid bursa and crepitus; no ecchymosis and no unsual warmth Results Reviewed Results Reviewed: 08/12/22 Assessment & Plan Assessment & Plan (1) Bilateral shoulder pain: Code(s): M25.511 - Pain in right shoulder; M25.512 - Pain in left shoulder Category: Medical (2) Generalized osteoarthritis: Code(s): M15.9 - Polyosteoarthritis, unspecified Category: Medical (3) Bilateral hip pain: Code(s): M25.551 - Pain in right hip; M25.552 - Pain in left hip Category: Medical (4) Bilateral knee pain: Code(s): M25.561 - Pain in right knee; M25.562 - Pain in left knee Category: Medical (5) Peripheral neuropathy: Code(s): G62.9 - Polyneuropathy, unspecified Category: Medical Plan Scheduled Bilateral diagnostic suprascap/axillary & lateral pectoral nerve blocks with local and fluoroscopy for potential RFA procedure. Patient is not candidate for peripheral nerve stimulation due to pacemaker and defibrillator in place. Pain has been resistant to conservative treatments. Patient is not surgical candidate due to multiple comorbidities. Expectations, risks and benefits were reviewed. Patient is aware she will be contacted to schedule this procedure. Patient on anticoagulation (warfarin) and instructions given on when to pause with prescribing physician permission. Will try to arrange topical 8% capsaicin application for bilateral foot pain once we have confirmed availability. All questions were answered and the patient is in agreement of plan. Follow-up after injections and sooner as needed. Coding Level of Care Code New Pt Level 4 (80685) Diagnoses Bilateral shoulder pain M25.511; M25.512 Generalized osteoarthritis M15.9 Bilateral hip pain M25.551; M25.552 Bilateral knee pain M25.561; M25.562 Peripheral neuropathy G62.9
[2024-07-12 13:54] VITALS: BMI 46.0
== END 2024-07-12 14:34 | disposition home or self-care (01) ==
PROVIDERS: PCP Internal Medicine; Visit Provider Nurse Practitioner Family
DX: M25.511 Pain in right shoulder (principal); M25.512 Pain in left shoulder; M15.9 Polyosteoarthritis, unspecified; M25.551 Pain in right hip; M25.552 Pain in left hip; M25.561 Pain in right knee; M25.562 Pain in left knee; G62.9 Polyneuropathy, unspecified
CPT/HCPCS: 99204

== ENCOUNTER → 2024-07-12 13:42 | Outpatient (BNVA) | payer MEDICARE, MEDICAID, SELFPAY | PROVIDERS: PCP Internal Medicine; Visit Provider Nurse Practitioner Family | DX: M25.511 Pain in right shoulder (principal); M25.512 Pain in left shoulder; M15.9 Polyosteoarthritis, unspecified; M25.551 Pain in right hip; M25.552 Pain in left hip; M25.561 Pain in right knee; M25.562 Pain in left knee; G62.9 Polyneuropathy, unspecified | CPT/HCPCS: 99202 ==

== ENCOUNTER 2024-08-15 09:48 | Outpatient (AMB) | payer MEDICARE, MEDICAID, SELFPAY ==
[2024-08-15 10:28] VITALS: BP 133/64; PULSE 68; RESP 16; O2SAT 95
--- NOTE | 2024-08-15 10:28 | MHC.OFFVIS ---
Vital Signs 08/15/24 10:28 Height 5 ft 3.5 in BP 133/64 Blood Pressure Location Lt brachial Position Sitting Respiration 16 Pulse 68 Pulse Source Pulse Oximeter Pulse Oximetry (%) 95 Oxygen Delivery Method Room Air Intake Visit Reasons: Neil dx suprascap/axillary/pectoral NB Allergies adhesive Adverse Reaction (Intermediate, Verified 08/15/24 10:29) Rash, Swelling cefadroxil Adverse Reaction (Unknown, Verified 08/15/24 10:29) Unknown NSAIDS (Non-Steroidal Anti-Inflamma Adverse Reaction (Unknown, Verified 08/15/24 10:29) Unknown pantoprazole Adverse Reaction (Unknown, Verified 08/15/24 10:29) Unknown From Duricef Allergy (Intermediate, Uncoded 08/15/24 10:29) RASH Medication List - Last Reconciled 08/15/24 by Nickie Mejía LPN albuterol sulfate 90 mcg/actuation 0 mcg inhalation blood sugar diagnostic (FreeStyle Lite Strips) As directed bumetanide 1 mg PO BID buspirone 5 mg PO BID calcitriol mcg PO cholecalciferol (vitamin D3) 25 mcg PO DAILY diclofenac sodium 1% 1 ea topical QID famotidine 40 mg PO BID folic acid 1 mg PO DAILY fosfomycin tromethamine 1 packet PO .q2 w fosfomycin tromethamine PO insulin regular hum U-500 conc (Humulin R U-500 (Concentrated) Insulin) units subcut isosorbide mononitrate ER 60 mg PO DAILY lactulose mL PO lancets (TRUEplus Lancets) As directed levothyroxine 112 mcg PO DAILY melatonin 5 mg PO BEDTIME PRN metoprolol succinate ER 50 mg PO DAILY morphine ER 30 mg PO BID PRN ondansetron 4 mg PO DAILY oxycodone 10 mg PO QID PRN potassium chloride ER 20 mEq PO DAILY prednisone 2.5 mg PO DAILY ropinirole 2 mg PO BEDTIME sennosides (senna) 8.6 - 17.2 mg PO BEDTIME PRN spironolactone 25 mg PO DAILY sulfasalazine 1,000 mg (2 x 500 mg) PO BID thiamine HCl (vitamin B1) 100 mg PO DAILY trospium 20 mg PO BID warfarin 7.5 mg PO DAILY HPI HPI Neil dx suprascap/axillary/pectoral NB: Details: 73-year-old female presents today for evaluation of bilateral shoulder pain. Patient reports multiple comorbidities including polyarthralgia, diabetes, PMR, seronegative RA, sarcoidosis, and bilateral shoulder pain. She reports limited and restricted movement and range of motion of b/l shoulders. She notices that her pain is localized to the posterior and anterior aspects of both shoulders. She finished physical therapy in 2017, and was in rehab 2 years ago at [facility]. She had multiple injections in the past with mixed results. Reports pain is interfering with her ADLs and sleep. She had received steroid injections in the past without much benefit. She is interested to undergo diagnostics nerve blocks for potential radiofrequency procedure. She has been on Morphine 30 mg and oxycodone 10 mg that were prescribed by her PCP, which helps with pain relief. She is using Voltaren gel. She reports she has diabetic neuropathy in the feet and reports tingling and burning sensation in the feet. She was approved for capsaicin patch application for it. She also has bilateral hip and knee pain. She is not able to walk due to AVN. She has been bedridden for 2 years, and residing at home with VNA services and family support, aldana catheter in place. She has been receiving palliative care assistance. She was seen by Marina Bailey on 07/12/24 for potential neuromodulation of her pain generators. Per note, the patient has pacemaker and defibrillator in place and is not candidate for peripheral nerve stimulation. She was recommended bilateral diagnostic suprascap/axillary & lateral pectoral nerve blocks with local and fluoroscopy for potential RFA procedure. [facility] Medical History Liver cirrhosis secondary to GARCIAS Sarcoidosis Cardiac pacemaker PMR (polymyalgia rheumatica) Hypertension Obstructive sleep apnea Anxiety Dyslipidemia Hypothyroidism Dupuytren contracture Crohn's disease Morbid obesity Type 2 diabetes mellitus Rheumatoid arthritis Dysphagia Major depressive disorder Surgical History History of thyroid surgery H/O hand surgery Hx of section History of partial colectomy Family History Other Rheumatoid arthritis Social History Alcohol intake: current Alcohol intake frequency: does not drink Patient Tobacco Use Status: Former Tobacco user Physical Exam Vital Signs: Last Vital Signs Pulse 68 08/15/24 10:28 Resp 16 08/15/24 10:28 BP 133/64 08/15/24 10:28 Pulse Ox 95 08/15/24 10:28 Oxygen Delivery Method Room Air 08/15/24 10:28 General: Brought to the office today on a stretcher. She is unable to get up from a lying position. Appears afebrile. Alert and oriented. Mood and affect appropriate. Follows and participates in conversation appropriately. Respiratory effort is unlabored. Skin on the feet is intact. 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 I offered her an ultrasound guided low dose steroid injection in the office today, but she refused since those have not been helpful in the past and have contributed to increasing blood sugars. She is already on oral opioids prescribed by her primary care provider which she finds helpful. I will defer her to palliative care team to further titrate these as needed. She was approved for capsaicin patch application for diabetic neuropathy, so we will proceed with application of capsaicin patches for peripheral diabetic neuropathy of feet. For her shoulder, I recommended continuing OTC topical products and see whichever is most efficacious. Patient and her son were in agreement with the plan. Scribed for Dr. Hunt by lázaro Reinoso scribe, on 08/15/2024. I, Dr. Hunt, have personally reviewed and agree with the information entered by the scribe. Coding Level of Care Code Est Pt Level 4 (29636) Diagnoses Bilateral knee pain M25.561; M25.562 Bilateral hip pain M25.551; M25.552 Avascular necrosis of right femur due to adverse effect of steroid therapy M87.151; T38.0X5A Diabetic neuropathy E11.40
== END 2024-08-15 10:59 | disposition home or self-care (01) ==
PROVIDERS: PCP Internal Medicine; Visit Provider Internal Medicine
DX: M25.561 Pain in right knee (principal); M25.562 Pain in left knee; M25.551 Pain in right hip; M25.552 Pain in left hip; M87.151 Osteonecrosis due to drugs, right femur; T38.0X5A Adverse effect of glucocorticoids and synthetic analogues, initial encounter; E11.40 Type 2 diabetes mellitus with diabetic neuropathy, unspecified
CPT/HCPCS: 99214

== ENCOUNTER → 2024-08-15 09:48 | Outpatient (BNVA) | payer MEDICARE, MEDICAID, SELFPAY | PROVIDERS: PCP Internal Medicine; Visit Provider Internal Medicine | DX: M25.561 Pain in right knee (principal); M25.562 Pain in left knee; M25.551 Pain in right hip; M25.552 Pain in left hip; M87.151 Osteonecrosis due to drugs, right femur; T38.0X5A Adverse effect of glucocorticoids and synthetic analogues, initial encounter; M06.00 Rheumatoid arthritis without rheumatoid factor, unspecified site; E11.40 Type 2 diabetes mellitus with diabetic neuropathy, unspecified; X58.XXXA Exposure to other specified factors, initial encounter | CPT/HCPCS: 99212 ==